=== PATIENT | male | born 1950 | race Caucasian/White ===

== ENCOUNTER 2017-09-19 19:45 | Emergency (ER) | payer OTHER ==
[2017-09-19] MEDS ORDERED: NS 1,000 ML IV ONE (19:50)
--- NOTE | 2017-09-19 19:50 | EDPHY ---
HPI/HX/ROS/PE/MDM Narrative: CHIEF COMPLAINT: Near-syncope, atrial fib/flutter HPI: The patient is an anticoagulated 66 y/o male with a history of atrial fibrillation arriving with his for evaluation of a near syncopal event this evening. He is visiting with his family from [place], [place] and went on a 3- mile hike around the [facility] this morning without issue. This evening while in the hot tub, he began to feel lightheaded and like he would faint. His son told EMS the patient looked suddenly hagan and the son pulled him out of the hot tub and helped him lie flat. The patient then felt diffusely weak and vomited once. EMS noted his rhythm was shifting between atrial fibrillation and flutter throughout transport. Upon arrival here, the patient feels completely back to baseline. He denies nausea, chest pain, dyspnea, fever, cough, urinary symptoms , recent illness, recent trauma or any other complaints. He has never had symptoms like this previously. He reports he is complaint with his medications. REVIEW OF SYSTEMS: Aside from elements discussed in the HPI, a comprehensive 10-point review of systems was reviewed and is negative. PMH: Intermittent atrial fibrillation - Eliquis; hypertension - metoprolol SOCIAL HISTORY: at bedside. Nonsmoker. Visiting from [place], [place]. PHYSICAL EXAM: General:Patient is alert, in no acute distress. ENT:Eyes are normal to inspection. ENT inspection normal. Neck: Normal inspection. Full range of motion. Respiratory:No respiratory distress. Breath sounds normal bilaterally. Cardiovascular: Regular rate and rhythm. Strong peripheral pulses. Normal cap refill. Abdomen:The abdomen is nontender to palpation. There are no peritoneal signs. Back: Normal to inspection. No tenderness to palpation. Skin: Normal color. No rash. Warm and dry. Extremities: Normal appearance. Full range of motion. Neuro: Oriented x3. Normal motor function. Normal sensory function. ED Course: This is a 67 y/o male with a history of atrial fibrillation who is visiting from [place] and presents after a near-syncopal episode and vomiting while in the hot tub this evening. EMS noted he was in afib/aflutter during transport. He is currently asymptomatic and has an unremarkable exam. Plan for IV, labs including troponin, EKG, chest x-ray. The 12 lead EKG was interpreted by myself. See hard copy and/or "tracemaster" electronic copy for interpretation. Chest x-ray: negative. Labs including troponin are unremarkable. Reassessed patient and discussed work up. He is in rate-controlled atrial fibrillation here, but continues to be asymptomatic. He feels comfortable going home and following up with his typing section chief upon his return to [place]. Return precautions discussed. He is comfortable with this plan. MDM: This patient presents with a near-syncopal event that appears multi-factorial. [place] went [place] hike earlier today in the hot weather, is in atrial fib/flutter and sat in a hot tub with likely resultant vasodilation and transient hypotension. He is completely asmyptomatic in the ED and his vitals are normal. I suspect his atrial fib/ flutter is likely playing a role, but his rate is well controlled and he is appropriately anti-coagulated. We discussed option of cardioversion but he declines this. I offered him admission to the hospital for further workup and observation but he declines this as well. His family is comfortable with him being discharged. I see no signs of PE, ACS, PTx, PNA, CHF, TAD. - Data Points Imaging Results: Imaging Impressions Chest X-Ray 09/19/17 19:51 Impression: Chest negative for acute abnormality with findings noted as detailed above. Imaging: I viewed and interpreted images myself Laboratory Results: Laboratory Results 09/19/17 19:53 09/19/17 19:53 09/19/17 09/19/17 09/19/17 19:56 19:53 19:53 WBC 6.96 10^3/uL 10^3/uL (3.80-9.50) RBC 5.52 10^6/uL 10^6/uL (4.40-6.38) Hgb 16.8 g/dL g/dL (13.7-17.5) Hct 49.3 % % (40.0-51.0) MCV 89.3 fL fL (81.5-99.8) MCH 30.4 pg pg (27.9-34.1) MCHC 34.1 g/dL g/dL (32.4-36.7) RDW 12.8 % % (11.5-15.2) Plt Count 204 10^3/uL 10^3/uL (150-400) MPV 10.7 fL fL (8.7-11.7) Neut % (Auto) 51.5 % % (39.3-74.2) Lymph % (Auto) 36.4 % % (15.0-45.0) Ransom % (Auto) 8.9 % % (4.5-13.0) Eos % (Auto) 1.9 % % (0.6-7.6) Baso % (Auto) 0.9 % % (0.3-1.7) Nucleat RBC Rel Count 0.0 % % (0.0-0.2) Absolute Neuts (auto) 3.59 10^3/uL 10^3/uL (1.70-6.50) Absolute Lymphs (auto) 2.53 10^3/uL 10^3/uL (1.00-3.00) Absolute Monos (auto) 0.62 10^3/uL 10^3/uL (0.30-0.80) Absolute Eos (auto) 0.13 10^3/uL 10^3/uL (0.03-0.40) Absolute Basos (auto) 0.06 10^3/uL 10^3/uL (0.02-0.10) Absolute Nucleated RBC 0.00 10^3/uL 10^3/uL (0-0.01) Immature Gran % 0.4 % % (0.0-1.1) Immature Gran # 0.03 10^3/uL 10^3/uL (0.00-0.10) Sodium 143 mEq/L mEq/L (135-145) Potassium 4.2 mEq/L mEq/L (3.3-5.0) Chloride 104 mEq/L mEq/L (97-110) Carbon Dioxide 24 mEq/l mEq/l (22-31) Anion Gap 15 mEq/L mEq/L (8-16) BUN 15 mg/dL mg/dL (7-23) Creatinine 1.0 mg/dL mg/dL (0.7-1.3) Estimated GFR > 60 Glucose 169 mg/dL H mg/dL (70-100) Calcium 10.0 mg/dL mg/dL (8.5-10.4) POC Troponin I 0.00 ng/mL ng/mL (0.00-0.08) Medications Given: Discontinued Medications Sodium Chloride (Ns) 1,000 mls @ 0 mls/hr IV EDNOW ONE; Wide Open PRN Reason: Protocol Stop: 09/19/17 19:51 Last Admin: 09/19/17 19:55 Dose: 1,000 mls Metoprolol Tartrate (Lopressor Injection) 5 mg IVP EDNOW ONE Stop: 09/19/17 19:56 Last Admin: 09/19/17 20:12 Dose: 5 mg Point of Care Test Results: Chemistry 09/19/17 19:56 POC Troponin I 0.00 ng/mL ng/mL (0.00-0.08) General Time Seen by Provider: 09/19/17 19:47 Initial Vital Signs: Initial Vital Signs Temperature (C) 37.1 C 09/19/17 19:45 Heart Rate 94 09/19/17 19:45 Respiratory Rate 18 09/19/17 19:45 Blood Pressure 136/90 H 09/19/17 19:45 O2 Sat (%) 94 09/19/17 19:45 O2 Delivery Mode Room Air O2 (L/minute) 2 Allergies/Adverse Reactions: No Known Allergies Allergy (Unverified 09/19/17 19:56) Home Medications: Medication Instructions Recorded Apixaban [Eliquis] 5 mg PO BID 09/19/17 Metoprolol Succinate 25 mg PO 09/19/17 Departure - Departure Disposition: Home, Routine, Self-Care Clinical Impression: Near syncope Atrial fibrillation Qualifiers: Atrial fibrillation type: unspecified Qualified Code(s): I48.91 - Unspecified atrial fibrillation Condition: Good Instructions: A-fib (Atrial Fibrillation) (ED), Near Syncope (ED) Additional Instructions: Follow up with your typing section chief upon your return home. Return to the ED for any recurrent or worsening symptoms. Referrals: Demian Gan MD [Medical Doctor] - As per Instructions Report Scribed for: Rubén Dyer Report Scribed by: Valarie Diallo Date of Report: 09/19/17 Time of Report: 19:50 Physician Review and Approval Statement: Portions of this note were transcribed by an ED scribe. I personally performed the history, physical exam, and medical decision making; and confirm the accuracy of the information in the transcribed note.
[2017-09-19] MEDS ORDERED: METOPROLOL TARTRATE 5 MG/5 ML INJ IVP ONE (19:55)
[2017-09-19 19:57] LABS: PLATELET COUNT 204 10^3/uL (150-400)
--- NOTE | 2017-09-19 20:08 | CPEKG ---
Heart Rate: 98 RR Interval: 612 QRSD Interval: 90 QT Interval: 384 QTC Interval: 491 QRS Foley: -19 T Wave Foley: 43 EKG Severity - ABNORMAL ECG - EKG Impression: atrial flutter EKG Impression: PAIRED VENTRICULAR PREMATURE COMPLEXES EKG Impression: BORDERLINE LEFT AXIS DEVIATION EKG Impression: BORDERLINE PROLONGED QT INTERVAL Electronically Signed By: Rubén Dyer 19-Sep-2017 21:25:20
[2017-09-19 21:03] VITALS: BP 154/91
== END 2017-09-19 21:03 | disposition home or self-care (01) ==
DX: R55 Syncope and collapse (principal); I48.91 Unspecified atrial fibrillation; I10 Essential (primary) hypertension; E86.9 Volume depletion, unspecified; Z79.01 Long term (current) use of anticoagulants
CPT/HCPCS: 84484-PO; 96374